=== PATIENT | female | born 1940 | race Hispanic/Latino ===

== ENCOUNTER 2018-12-31 20:09 | Observation (INO) | payer OTHER, MEDICARE ==
[~2018-12-31] VITALS: Ht 167.6 cm; Wt 85.9 kg
[~2018-12-31 20:09] MED LIST: ACET-2900 PO; DICL75TA5 PO; HYDR-4060 PO; LISI40TA4 PO; LORA1TAB3 PO; PANT40TA25 PO; PRAV40TA3 PO
[2018-12-31 20:33] LABS: BASOPHILS % (AUTO) 0.5 % (0.0-5.0); EOSINOPHILS % (AUTO) 2.2 % (0.0-8.0); HEMATOCRIT 38.4 % (36-48); LYMPHOCYTES % (AUTO) 40.1 % (21.0-51.0); MEAN CORPUSCULAR HEMOGLOBIN 33.2 pg (27.0-33.0); MEAN CORPUSCULAR HGB CONC 34.1 g/dL (32.0-36.0); MEAN CORPUSCULAR VOLUME 97.4 fL (79-99); MONOCYTES % (AUTO) 8.8 % (3.0-13.0); NEUTROPHILS % (AUTO) 48.4 % (40.0-77.0); PLATELET COUNT (AUTO) 253 K/uL (130-400); RED BLOOD CELL COUNT(AUTO) 3.94 MIL/uL (4.00-5.50); RED CELL DISTRIBUTION WIDTH 13.3 % (11.0-15.5); WHITE BLOOD COUNT (AUTO) 9.4 K/uL (4.8-10.8)
[2018-12-31] MEDS ORDERED: NITROGLYCERIN 1GM/1 INCH PACKET TD ONE (20:43)
[2018-12-31 21:03] LABS: CREATININE 0.9 mg/dL (0.5-1.5); POTASSIUM 3.5 mmol/L (3.5-5.1)
[2018-12-31] MEDS ORDERED: ONDANSETRON HCL 4 MG/2 ML VIAL IV PRN (23:00)
[2018-12-31] MEDS ORDERED: HYDRALAZINE HCL 20 MG/ML VIAL IV PRN (23:00)
[2018-12-31] MEDS ORDERED: MORPHINE SULFATE 4 MG/1ML SYG IV PRN (23:00)
[2018-12-31] MEDS ORDERED: ACETAMINOPHEN 325 MG TAB PO PRN ×2 (23:00)
[2018-12-31] MEDS ORDERED: MORPHINE SULFATE 2 MG/ML 1ML SYG IV PRN (23:00)
[2019-01-01 01:10] LABS: CREATINE KINASE, TOTAL 74 U/L (21-232); MYOGLOBIN 79 ng/mL (10-92); TROPONIN I < 0.04 ng/mL (0.00-0.06)
[2019-01-01 06:28] LABS: CREATINE KINASE, TOTAL 63 U/L (21-232); MYOGLOBIN 63 ng/mL (10-92); TROPONIN I < 0.04 ng/mL (0.00-0.06)
[2019-01-01] MEDS: NITROGLYCERIN 1GM/1 INCH PACKET TD SCH ×3 (08:00→14:11)
[2019-01-01] MEDS ORDERED: ENOXAPARIN SODIUM 30 MG/0.3 ML SQ ONE (08:30)
[2019-01-01] MEDS ORDERED: NITROGLYCERIN 1GM/1 INCH PACKET TD ONE (08:30)
[2019-01-01] MEDS ORDERED: METOPROLOL TARTRATE 25 MG TAB ONE (08:31)
[2019-01-01] MEDS ORDERED: FAMOTIDINE/PF 20 MG/2 ML VIAL IV ONE (08:31)
[2019-01-01] MEDS ORDERED: METOPROLOL TARTRATE 25 MG TAB PO SCH (09:00)
[2019-01-01] MEDS ORDERED: FAMOTIDINE/PF 20 MG/2 ML VIAL IV SCH (09:00)
[2019-01-01] MEDS ORDERED: ENOXAPARIN SODIUM 30 MG/0.3 ML SQ SCH (09:00)
[2019-01-01] MEDS ORDERED: HYDRALAZINE HCL 20 MG/ML VIAL ONE (09:02)
[2019-01-01 10:50] VITALS: BP 144/67
[2019-01-01 11:04] LABS: CREATINE KINASE, TOTAL 64 U/L (21-232); MYOGLOBIN 63 ng/mL (10-92); TROPONIN I < 0.04 ng/mL (0.00-0.06)
[2019-01-01] MEDS ORDERED: METO25TA6 PO (11:04)
[2019-01-01] MEDS ORDERED: OMEP40CA37 PO (11:04)
--- NOTE | 2019-01-01 11:07 | NUR ---
ARRIVAL TO FLOOR PT IS AAOX4 DENIES CP DENIES SOB DENIES NV NO COMPLAINTS AT THIS TIME, RESTING IN BED. FAMILY IS AT BEDSIDE, CALL LIGHT WITHIN REACH, TELE PACK PLACED ON PATIENT.
[2019-01-01] MEDS: INSULIN HUMULIN R 100 UNIT/ML 3ML SQ SCH ×2 (11:12→16:11)
--- NOTE | 2019-01-01 13:20 | NUR ---
DR SORENSEN HOSPITALIST MADE AWARE OF PATIENT ARRIVAL TO FLOOR. STATES SHE WILL COME SEE PATIENT.
[2019-01-01 16:00] VITALS: BP 165/71
--- NOTE | 2019-01-01 16:03 | NUR ---
DENIES DIABETES REFUSES GLUCOSE CHECKS
--- NOTE | 2019-01-01 18:53 | NUR ---
DR SORENSEN ROUNDED ORDERED TO DC HOME. REVIEWED DC INSTRUCTIONS WITH PT AND DAUGHTER, VERBALIZE UNDERSTANDING. AGREE TO TAKE MEDS ORDERED AND FOLLOW UP WITH PRIMARY MD NEXT WEEK. PIV REMOVED CATH TIP INTACT. TELE PACK REMOVED. DOWN VIA WC WITH NURSE AIDE.
== END 2019-01-01 19:10 | disposition home or self-care (01) ==
LOC: EDH 20:09 → INTOOBSV 21:45 → EDHIP 21:45 → 3DH 01-01 11:10
PROVIDERS: ADMIT Internal Medicine; ATTEND Internal Medicine
DX: R07.89 Other chest pain (principal); E78.5 Hyperlipidemia, unspecified; E78.00 Pure hypercholesterolemia, unspecified; I10 Essential (primary) hypertension; M19.90 Unspecified osteoarthritis, unspecified site; M81.0 Age-related osteoporosis without current pathological fracture; K21.9 Gastro-esophageal reflux disease without esophagitis; Z90.710 Acquired absence of both cervix and uterus; Z80.3 Family history of malignant neoplasm of breast; Z82.49 Family history of ischemic heart disease and other diseases of the circulatory system; Z82.62 Family history of osteoporosis; Z88.8 Allergy status to other drugs, medicaments and biological substances; Z79.899 Other long term (current) drug therapy
CPT/HCPCS: 36415 ×2; 71046; 80048; 82550 ×3; 83874 ×3; 84484 ×4; 85025; 93005; 93880; 96374; 96375; 99291; G0378 ×21; J0360; J1650; J2405; J3490